=== PATIENT | male | born 1945 | race American Indian/Alaskan Native ===

== ENCOUNTER 2017-05-17 11:10 | Emergency (ER) | payer MEDICARE ==
--- NOTE | 2017-05-17 12:03 | Emergency Department Report ---
ED Neuro Deficit HPI - General Chief Complaint: Neuro Symptoms/Deficit Stated Complaint: HAND SWOLLEN Time Seen by Provider: 05/17/17 11:48 Source: patient, EMS Mode of arrival: Stretcher Limitations: No Limitations - History of Present Illness Initial Comments: Pt is a 71 yr old male with h/o DM, HTN, gout, seizure d/o, generalized weakness bed bound, HLD, CAD, depression, and dementia who presents from the [facility] s/p fall. Pt reports he fell 2 days ago onto his left side and is now having bouts of blurry vision, L hand swelling, and L arm pain extending to the shoulder. The patient is able to give a full history of what happened to him. However, the [facility] was concerned for CVA sx with the blurry vision, but the patient states that this all states s/p fall 2 days ago. Otherwise no fevers, chills, headache, dizziness, LOC, CP, SOB, abd pain, travel or sick contacts - Related Data Allergies/Adverse Reactions: Allergies Allergy/AdvReac Type Severity Reaction Status Date / Time No Known Allergies Allergy Unverified 05/17/17 11:27 ED Review of Systems ROS: Stated complaint: HAND SWOLLEN Other details as noted in HPI Comment: All other systems reviewed and negative ED Past Medical Hx - Past Medical History Previous Medical History?: Yes Hx Hypertension: Yes Hx Diabetes: Yes Additional medical history: gout - Social History Smoking Status: Former Smoker Substance Use Type: None ED Neuro Physical Exam - General Limitations: No Limitations General appearance: alert, in no apparent distress Suspected Stroke: No - Head Head exam: Present: atraumatic, normocephalic - Eye Eye exam: Present: normal appearance, PERRL, EOMI, other (clear, no cloudiness seen). Absent: scleral icterus, conjunctival injection, nystagmus, periorbital swelling, periorbital tenderness Pupils: Present: normal accommodation. Absent: irregular, unequal - ENT ENT exam: Present: normal exam, mucous membranes moist - Neck Neck exam: Present: normal inspection - Respiratory Respiratory exam: Present: normal lung sounds bilaterally. Absent: respiratory distress - Cardiovascular Cardiovascular Exam: Present: regular rate, normal rhythm. Absent: systolic murmur, diastolic murmur, rubs, gallop - GI/Abdominal GI/Abdominal exam: Present: soft, normal bowel sounds - Rectal Rectal exam: Present: deferred - Extremities Exam Extremities exam: Present: normal inspection. Absent: full ROM (pain in wrist and forearm with elevation of the left arm), tenderness, pedal edema, joint swelling - Back Exam Back exam: Present: normal inspection - Neurological Exam Neurological exam: Present: alert, oriented X3, CN II-XII intact, reflexes normal. Absent: motor sensory deficit - Psychiatric Psychiatric exam: Present: normal affect, normal mood - Skin Skin exam: Present: warm, dry, intact, normal color. Absent: rash ED Course Vital Signs 05/17/17 05/17/17 05/17/17 11:25 11:27 11:30 Pulse Rate 60 60 60 Respiratory 14 17 16 Rate Blood Pressure 147/79 144/82 O2 Sat by Pulse 94 92 Oximetry 05/17/17 05/17/17 05/17/17 11:37 12:00 12:30 Pulse Rate 71 71 Respiratory 17 19 15 Rate Blood Pressure 170/92 163/92 O2 Sat by Pulse 94 95 65 L Oximetry 05/17/17 05/17/17 05/17/17 13:00 13:30 14:00 Pulse Rate 71 60 60 Respiratory 18 12 14 Rate Blood Pressure 168/90 160/89 167/84 O2 Sat by Pulse Oximetry - Lab Data Result diagrams: 05/17/17 12:01 05/17/17 12:01 Lab Results 05/17/17 05/17/17 05/17/17 Range/Units 12:01 12:01 12:01 WBC 8.1 (4.5-11.0) K/mm3 RBC 4.88 (3.65-5.03) M/mm3 Hgb 13.5 (11.8-15.2) gm/dl Hct 42.5 (35.5-45.6) % MCV 87 (84-94) fl MCH 28 (28-32) pg MCHC 32 (32-34) % RDW 20.3 H (13.2-15.2) % Plt Count 145 (140-440) K/mm3 Lymph % (Auto) 30.3 (13.4-35.0) % Starke % (Auto) 8.7 H (0.0-7.3) % Eos % (Auto) 0.9 (0.0-4.3) % Baso % (Auto) 0.5 (0.0-1.8) % Lymph # 2.5 (1.2-5.4) K/mm3 Starke # 0.7 (0.0-0.8) K/mm3 Eos # 0.1 (0.0-0.4) K/mm3 Baso # 0.0 (0.0-0.1) K/mm3 Seg Neutrophils % 59.6 (40.0-70.0) % Seg Neutrophils # 4.9 (1.8-7.7) K/mm3 PT 14.1 (12.2-14.9) Sec. INR 1.04 (0.87-1.13) APTT 30.2 (24.2-36.6) Sec. Thrombin Time (15.1-19.6) Sec. Sodium 142 (137-145) mmol/L Potassium 4.5 (3.6-5.0) mmol/L Chloride 102.6 (98-107) mmol/L Carbon Dioxide 27 (22-30) mmol/L Anion Gap 17 mmol/L BUN 19 (9-20) mg/dL Creatinine 1.5 (0.8-1.5) mg/dL Estimated GFR 56 ml/min BUN/Creatinine Ratio 12.66 % Glucose 95 (75-100) mg/dL Calcium 9.7 (8.4-10.2) mg/dL Troponin T < 0.010 (0.00-0.029) ng/mL 05/17/17 Range/Units 12:01 WBC (4.5-11.0) K/mm3 RBC (3.65-5.03) M/mm3 Hgb (11.8-15.2) gm/dl Hct (35.5-45.6) % MCV (84-94) fl MCH (28-32) pg MCHC (32-34) % RDW (13.2-15.2) % Plt Count (140-440) K/mm3 Lymph % (Auto) (13.4-35.0) % Starke % (Auto) (0.0-7.3) % Eos % (Auto) (0.0-4.3) % Baso % (Auto) (0.0-1.8) % Lymph # (1.2-5.4) K/mm3 Starke # (0.0-0.8) K/mm3 Eos # (0.0-0.4) K/mm3 Baso # (0.0-0.1) K/mm3 Seg Neutrophils % (40.0-70.0) % Seg Neutrophils # (1.8-7.7) K/mm3 PT (12.2-14.9) Sec. INR (0.87-1.13) APTT (24.2-36.6) Sec. Thrombin Time 17.0 (15.1-19.6) Sec. Sodium (137-145) mmol/L Potassium (3.6-5.0) mmol/L Chloride (98-107) mmol/L Carbon Dioxide (22-30) mmol/L Anion Gap mmol/L BUN (9-20) mg/dL Creatinine (0.8-1.5) mg/dL Estimated GFR ml/min BUN/Creatinine Ratio % Glucose (75-100) mg/dL Calcium (8.4-10.2) mg/dL Troponin T (0.00-0.029) ng/mL - EKG Data -: EKG Interpreted by 05/17/17 13:14 EKG 1243 atrial paced rhythm at 60 bpm, left axis deviation, left anterior fascicular block, QTC 450 ms, diffuse T-wave inversions, no STEMI - Radiology Data Radiology results: report reviewed Ct head: no acute intracranial findings Shoulder xray: no acute fracture or dislocation Forearm:no acute fracture or dislocation Wrist: no acute fracture or dislocation Hand: no acute fracture or dislocation Critical care attestation.: If time is entered above; I have spent that time in minutes in the direct care of this critically ill patient, excluding procedure time. ED Disposition Clinical Impression: Fall, Arm contusion Disposition: DC-01 TO HOME OR SELFCARE Is pt being admited?: No Condition: Stable Instructions: Fall Prevention for Older Adults (ED), Contusion in Adults (ED) Additional Instructions: PATIENT NEEDS TO BE EVALUATED BY THE OPHTHOMOLOGIST FOR INTERMITTENT BLURRY VISION IF PATIENT CONTINUES TO HAVE ARM PAIN HE NEEDS TO BE EVALUATED BY THE ORTHOPEDIST Referrals: PRIMARY CARE, [Primary Care Provider] - 3-5 Days
--- NOTE | 2017-05-17 12:18 | Cat Scan Report ---
CT HEAD WITHOUT CONTRAST: HISTORY: Neurological deficits, stroke. No comparison. Advanced volume loss and chronic white matter changes are identified. 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 Large chronic infarct in the right cerebellar hemisphere measures 5 x 4 cm. There is no evidence for hemorrhage, mass or large area of acute ischemia noncontrast CT. Ventricular size is within normal limits. No extra-axial fluid collection. The mastoid air cells and visualized portions of the sinuses are normal. IMPRESSION: No acute intracranial process. Chronic findings as outlined above.
[2017-05-17 12:39] LABS: Anion Gap 17 mmol/L; BUN/Creatinine Ratio 12.66; Basophils % (Auto) 0.5 % (0.0-1.8); Blood Urea Nitrogen 19 mg/dL (9-20); Calcium 9.7 mg/dL (8.4-10.2); Carbon Dioxide 27 mmol/L (22-30); Chloride 102.6 mmol/L (98-107); Eosinophils % (Auto) 0.9 % (0.0-4.3); Glucose 95 mg/dL (75-100); Hematocrit 42.5 % (35.5-45.6); Hemoglobin 13.5 gm/dl (11.8-15.2); Mean Corpuscular HGB Conc 32 % (32-34); Mean Corpuscular Hemoglobin 28 pg (28-32); Mean Corpuscular Volume 87 fl (84-94); Platelet Count 145 K/mm3 (140-440); Potassium 4.5 mmol/L (3.6-5.0); Red Blood Count 4.88 M/mm3 (3.65-5.03); Sodium 142 mmol/L (137-145); White Blood Count 8.1 K/mm3 (4.5-11.0)
[2017-05-17 13:01] LABS: INR 1.04 (0.87-1.13)
[2017-05-17 13:02] LABS: Partial Thromboplastin Time 30.2 Sec. (24.2-36.6)
[2017-05-17 13:04] LABS: Red Cell Distribution Width 20.3 % (13.2-15.2)
--- NOTE | 2017-05-17 13:29 | XRay Report ---
LEFT HAND, 3 views: History: Pain and swelling. Very poor examination secondary to a contracted hand with poor separation of the fingers. There are diffuse degenerative changes but no obvious fracture or malalignment. IMPRESSION: Limited exam. No acute injury appreciated.
--- NOTE | 2017-05-17 13:30 | XRay Report ---
LEFT FOREARM: History: Pain and swelling. AP and lateral views of the forearm demonstrate normal mineralization and contours for this patient's age. No fracture or dislocation is identified. Severe degenerative changes at the left elbow. IMPRESSION: No acute injury is identified.
--- NOTE | 2017-05-17 13:31 | XRay Report ---
LEFT SHOULDER, 2 views: History: Pain. Routine views demonstrate normal bony and soft tissue structures with normal joint alignment of the shoulder. IMPRESSION: No acute injury is identified.
[2017-05-17 16:20] VITALS: BP 167/95
== END 2017-05-17 16:20 | disposition home or self-care (01) ==
LOC: ED 11:10
DX: S40.022A Contusion of left upper arm, initial encounter (principal); E11.9 Type 2 diabetes mellitus without complications; I10 Essential (primary) hypertension; F32.9 Major depressive disorder, single episode, unspecified; Z87.891 Personal history of nicotine dependence; W19.XXXA Unspecified fall, initial encounter; Y93.89 Activity, other specified; Y99.9 Unspecified external cause status; Y92.89 Other specified places as the place of occurrence of the external cause
CPT/HCPCS: 36415; 70450; 80048; 84484; 85025; 85610; 85670; 85730; 93005; 93010

== ENCOUNTER 2017-05-26 12:40 | Inpatient (IN) | payer MEDICARE ==
--- NOTE | 2017-05-26 13:35 | Cat Scan Report ---
CT scan of head without contrast: Compare to 05/17/17. History: AMS. Stroke protocol. Findings. There is chronic infarct noted in the right cerebellum without significant interval change. There is chronic infarct noted in the left posterior watershed region without interval change. No evidence of acute ischemia, hemorrhage or mass. No extra-axial fluid collection. Impression: No acute intracranial abnormality. Chronic ischemic changes as detailed above. Dr. Dye was informed of the findings at 1:28 PM on 05/26/17. 98N.
[2017-05-26 13:37] LABS: Urine Drugs of Abuse Note Disclamer
--- NOTE | 2017-05-26 13:42 | Emergency Department Report ---
HPI - General Chief Complaint: Altered Mental Status Time Seen by Provider: 05/26/17 13:02 - HPI HPI: This is a 71-year-old Afro-[place] male who presents to the emergency department via EMS from [facility] with complaint of altered [place] [facility] says started 1 hour prior to presentation. The patient has a past medical history of diabetes, gout, dementia, hyperlipidemia, coronary artery disease, chronic ulcerations. Patient is currently a poor historian as he is currently AAO [address] but not time. However the patient does say that he has been having recent falls and that he is having pain to his bottom and left leg, both of which she has chronic ulcerations. It does not appears that he was given any medication or treatment for his symptoms prior to presentation. The patient was recently here on 05/17/17 for a medical evaluation status post fall. ED Past Medical Hx - Past Medical History Previous Medical History?: Yes Hx Hypertension: Yes Hx Diabetes: Yes Additional medical history: gout - Surgical History Past Surgical History?: Yes - Social History Smoking Status: Never Smoker Substance Use Type: None - Medications Home Medications: Home Medications Medication Instructions Recorded Confirmed Last Taken Type Allopurinol [Zyloprim] 100 mg PO QDAY 05/26/17 05/26/17 Unknown History Carvedilol [Coreg] 12.5 mg PO BID 05/26/17 05/26/17 Unknown History Divalproex [Ijeoma YOUNG] 500 mg PO BID 05/26/17 05/26/17 Unknown History Docusate Sodium [Colace] 100 mg PO BID 05/26/17 05/26/17 Unknown History Donepezil [Aricept] 10 mg PO QHS 05/26/17 05/26/17 Unknown History Ferrous Sulfate [Feosol] 325 mg PO BID 05/26/17 05/26/17 Unknown History Gabapentin [Neurontin] 300 mg PO Q8HR 05/26/17 05/26/17 Unknown History Insulin Aspart [NovoLOG Flexpen] 3 units SQ TIDWM 05/26/17 05/26/17 Unknown History Ipratropium/Albuterol Sulfate 1 ampul IH Q6HR 05/26/17 05/26/17 Unknown History [Duoneb 0.5 mg-3 mg/3 ml Soln] cefTRIAXone [Rocephin] 1 gm IV Q24HR 05/26/17 05/26/17 Unknown History ED Review of Systems ROS: Stated complaint: AMS X 1 HR Other details as noted in HPI Comment: Unobtainable due to pts medical conditions Physical Exam - Physical Exam Vital Signs: Vital Signs 05/26/17 05/26/17 05/26/17 12:40 12:41 12:42 Pulse Rate 61 64 60 Respiratory 13 12 16 Rate Blood Pressure 142/76 O2 Sat by Pulse Oximetry 05/26/17 05/26/17 05/26/17 12:43 12:45 12:47 Pulse Rate 63 63 60 Respiratory 16 14 18 Rate Blood Pressure 142/76 150/83 150/83 O2 Sat by Pulse Oximetry 05/26/17 05/26/17 05/26/17 12:49 12:51 12:53 Pulse Rate 63 64 62 Respiratory 17 17 11 L Rate Blood Pressure 150/83 150/83 150/83 O2 Sat by Pulse 96 95 96 Oximetry 05/26/17 05/26/17 05/26/17 12:55 12:57 12:59 Pulse Rate 64 60 62 Respiratory 13 14 12 Rate Blood Pressure 150/83 150/83 150/83 O2 Sat by Pulse 95 96 94 Oximetry 05/26/17 05/26/17 05/26/17 13:00 13:02 13:15 Pulse Rate 61 Respiratory 15 18 Rate Blood Pressure 150/83 150/83 O2 Sat by Pulse 96 96 95 Oximetry 05/26/17 05/26/17 05/26/17 13:17 13:19 13:21 Pulse Rate 68 64 65 Respiratory 14 13 14 Rate Blood Pressure 150/83 150/83 150/83 O2 Sat by Pulse 92 94 95 Oximetry 05/26/17 13:23 Pulse Rate 61 Respiratory 14 Rate Blood Pressure 150/83 O2 Sat by Pulse 94 Oximetry Physical Exam: GENERAL: The patient is well-developed well-nourished. HEENT: Normocephalic. Atraumatic. Extraocular motions are intact. Patient has moist mucous membranes. Pupils equal reactive to light bilaterally. NECK: Supple. Trachea is midline. CHEST/LUNGS: Clear to auscultation. There is no respiratory distress noted. HEART/CARDIOVASCULAR: Regular. There is no tachycardia. There is no gallop rub or murmur. ABDOMEN: Abdomen is soft, nontender. Patient has normal bowel sounds. There is no abdominal distention. SKIN: Skin is warm and dry. The patient has a stage I sacral decubitus ulcer. There is a wound to the left foot that is more of a blister then an ulcer at this point. NEURO: The patient is awake, alert. AAO [address] but not time. The patient also thinks the current president is Woody Albrecht. The patient is cooperative. The patient has normal speech. No pronator drift. MUSCULOSKELETAL: There is no tenderness or deformity. There is no limitation range of motion. There is no evidence of acute injury. Cap refill less than 2 seconds. Radial pulses +2 over 4 bilaterally. ED Course Vital Signs 05/26/17 05/26/17 05/26/17 12:40 12:41 12:42 Pulse Rate 61 64 60 Respiratory 13 12 16 Rate Blood Pressure 142/76 O2 Sat by Pulse Oximetry 05/26/17 05/26/17 05/26/17 12:43 12:45 12:47 Pulse Rate 63 63 60 Respiratory 16 14 18 Rate Blood Pressure 142/76 150/83 150/83 O2 Sat by Pulse Oximetry 05/26/17 05/26/17 05/26/17 12:49 12:51 12:53 Pulse Rate 63 64 62 Respiratory 17 17 11 L Rate Blood Pressure 150/83 150/83 150/83 O2 Sat by Pulse 96 95 96 Oximetry 05/26/17 05/26/17 05/26/17 12:55 12:57 12:59 Pulse Rate 64 60 62 Respiratory 13 14 12 Rate Blood Pressure 150/83 150/83 150/83 O2 Sat by Pulse 95 96 94 Oximetry 05/26/17 05/26/17 05/26/17 13:00 13:02 13:15 Pulse Rate 61 Respiratory 15 18 Rate Blood Pressure 150/83 150/83 O2 Sat by Pulse 96 96 95 Oximetry 05/26/17 05/26/17 05/26/17 13:17 13:19 13:21 Pulse Rate 68 64 65 Respiratory 14 13 14 Rate Blood Pressure 150/83 150/83 150/83 O2 Sat by Pulse 92 94 95 Oximetry 05/26/17 13:23 Pulse Rate 61 Respiratory 14 Rate Blood Pressure 150/83 O2 Sat by Pulse 94 Oximetry - Consultations Consultation #1: I spoke with the telemedicine neurologist, Dr. Quintin Diana, who does not feel that this patient is a TPA candidate. We are unsure whether the patient was found one hour prior to presentation and that is when they noticed the altered mental status versus the ECF staff interacting with the patient and noticing the exact time of change. However also based on his general debility and multiple comorbidities, he is a high risk for TPA administration. The neurologist recommends admission, further workup to look for other etiologies, and either serial CT or an MRI. 05/26/17 13:52 ED Medical Decision Making - Lab Data Result diagrams: 05/26/17 14:00 05/26/17 13:34 - EKG Data -: EKG Interpreted by Me EKG shows normal: sinus rhythm, axis (left axis deviation), intervals (right bundle-branch block), QRS complexes (LVH), ST-T waves (T-wave inversions to the inferior and lateral leads) - EKG Data When compared to previous EKG there are: no significant change Interpretation: unchanged when compared t (05/17/17) - Radiology Data Radiology results: report reviewed interpreted by me: CT of the head without contrast does not show any bleed, shift, mass or any acute process. Chronic ischemic changes seen. - Medical Decision Making 71-year-old male presents to the emergency department ECF with the complaint of altered mental status. Since the report was that the change in mental status happen acutely 1 hour prior to presentation, a code stroke was called. CT of the head did not show any bleed, shift, mass or any acute process but does show ischemic chronic changes. Telemedicine neurology agreed that the patient does not appear to be a candidate at this time for TPA administration. The rest the patient's labs are mostly unremarkable and do not show any etiology of the patient's symptoms. EKG shows some T-wave inversions and nonspecific ST-T changes but there is no morphology consistent with an ST elevation AL and the EKG is unchanged from previous. However since the neurologist also was unable to rule out CVA, and since the patient was sent in for altered mental status, the patient will be admitted to the hospital for further evaluation and has been presented to the hospitalist, Dr. Claudio. - Differential Diagnosis CVA, TIA, Dementia, Sepsis Critical Care Time: No Critical care attestation.: If time is entered above; I have spent that time in minutes in the direct care of this critically ill patient, excluding procedure time. ED Disposition Clinical Impression: History of dementia Altered mental status Qualifiers: Altered mental status type: unspecified Qualified Code(s): R41.82 - Altered mental status, unspecified Hypertension Qualifiers: Hypertension type: essential hypertension Qualified Code(s): I10 - Essential ( primary) hypertension Disposition: OP ADMIT IP TO THIS HOSP Is pt being admited?: Yes Condition: Stable Instructions: Hypertension (ED) Referrals: PRIMARY CARE, [Primary Care Provider] - 3-5 Days Time of Disposition: 15:32
[2017-05-26 13:47] LABS: Bilirubin,Urine NEG (Negative); Blood,Urine NEG (Negative); Ketones,Urine NEG (Negative); Leukocyte Esterase,Urine NEG (Negative); Mucus,Urine FEW /HPF; Nitrite,Urine NEG (Negative); Protein,Urine <15 mg/dL mg/dL (Negative)
[2017-05-26 14:10] LABS: Albumin 3.5 g/dL (3.9-5); Albumin/Globulin Ratio 0.8 %; Alkaline Phosphatase 56 units/L (35-129); Anion Gap 15 mmol/L; BUN/Creatinine Ratio 14.61; Blood Urea Nitrogen 19 mg/dL (9-20); Calcium 9.4 mg/dL (8.4-10.2); Carbon Dioxide 26 mmol/L (22-30); Chloride 100.8 mmol/L (98-107); Glucose 110 mg/dL (75-100); Potassium 4.4 mmol/L (3.6-5.0); Sodium 137 mmol/L (137-145); Total Protein 7.9 g/dL (6.3-8.2)
[2017-05-26 14:18] LABS: Alanine Aminotransferase < 5 units/L (7-56)
--- NOTE | 2017-05-26 14:23 | Admit Criteria Form ---
Admission Criteria Documentation: MENTAL STATUS CHANGE Clinical Indications for Inpatient Care (Place 'X' for any and all applicable criteria): Ongoing inpatient care may be needed for 1 or more of the following(1)(2)(3)(5)( 6): [ X]I. Suspected serious etiology (eg, medical disorder, INDUSTRI[employer] INTER[employer] event) of altered mental status [ ]II. Danger to self or others not manageable at lower level of care [ ]III. Grave disability (eg, inability to perform self care necessary at lower level of care) [ ]IV. Agitation or inappropriate behavior interfering with care for primary condition (eg, attempting to discontinue lines or drains prematurely, unable to cooperate with respiratory care) [ ]V. Delirium [A] [D][E] as described by 1 or more of the following(26): [ ]a) Delirium due to alcohol or sedative [F] withdrawal [ ]b) Delirium of uncertain etiology that has not responded to appropriate empiric treatment [ ]c) Delirium that prevents performance of a life-sustaining function (eg, feeding or hydrating oneself) [ X]. General contraindications and/or Inappropriate clinical situations for Observational Care in patients with Mental Status Change, when ANY ONE of the following is required: [X ]a) Prediction of prolongation of LOS based on ANY ONE of the following may be considered as a contraindication for observational care 2, 3, 4, 5, 6, 7, 8, 9, 10, 11 [X ]i) Age > 65 yrs. [ ]ii) Patient arriving by ambulance [ ]iii) Patient with high acuity [ ]iv) Patient requiring vital sign monitoring [ ]v) Patient on IV medication [ ]b) Systolic blood pressures greater than or equal to 180mmHg 3, 12 [ ]c) Patient with altered mental status including delirium and other alteration of consciousness, (3) [ ]d) Patient whose discharge disposition will be to a intermediate home or rehabilitation home should not be managed in Emergency Department Observation Unit. CMS rule requires 3 days hospital stay before such placement.3,13 [ ]e) Patient with failure to thrive due to broad array of etiologies 3,16,17 [ ]f) Inability to ambulate 3,14 Extended stay beyond goal length of stay for the primary condition may be needed until ALL of the following are present(3)(5): [ ]a) Underlying medical etiology of mental status change is absent, or has been established and adequately treated [ ]b) Danger to self or others is absent or manageable at lower level of care. [ ]c) Behavior crisis management, including physical or chemical restraints, is not required or available at lower level of car [ ]d) Substance or alcohol withdrawal is absent or manageable at lower level of care. [ ]e) Behavioral symptoms (eg, agitation, somnolence, inappropriate behavior) are absent, or are manageable at lower level of care. The original [facility] b-datum content created by [facility] has been revised. The portions of the content which have been revised are identified through the use of italic text or in bold, and [facility] has neither reviewed nor approved the modified material. All other unmodified content is copyright [facility]. Please see references footnoted in the original [facility] edition 2016 Admission Criteria Met: Yes
[2017-05-26 14:30] LABS: Basophils % (Auto) 0.6 % (0.0-1.8); Hemoglobin 13.1 gm/dl (11.8-15.2); Mean Corpuscular HGB Conc 32 % (32-34); Mean Corpuscular Hemoglobin 27 pg (28-32); Mean Corpuscular Volume 86 fl (84-94); Platelet Count 148 K/mm3 (140-440); Red Blood Count 4.79 M/mm3 (3.65-5.03); Red Cell Distribution Width 19.3 % (13.2-15.2); White Blood Count 8.6 K/mm3 (4.5-11.0)
--- NOTE | 2017-05-26 15:27 | History and Physical Report ---
Medications and Allergies Allergies Allergy/AdvReac Type Severity Reaction Status Date / Time No Known Allergies Allergy Unverified 05/17/17 11:27 Home Medications Medication Instructions Recorded Confirmed Last Taken Type Allopurinol [Zyloprim] 100 mg PO QDAY 05/26/17 05/26/17 Unknown History Carvedilol [Coreg] 12.5 mg PO BID 05/26/17 05/26/[address] [DepaKOTE DR] 500 mg PO BID 05/26/17 05/26/17 Unknown History Docusate Sodium [Colace] 100 mg PO BID 05/26/17 05/26/17 Unknown History Donepezil [Aricept] 10 mg PO QHS 05/26/17 05/26/17 Unknown History Ferrous Sulfate [Feosol] 325 mg PO BID 05/26/17 05/26/17 Unknown History Gabapentin [Neurontin] 300 mg PO Q8HR 05/26/17 05/26/17 Unknown History Insulin Aspart [NovoLOG Flexpen] 3 units SQ TIDWM 05/26/17 05/26/17 Unknown History Ipratropium/Albuterol Sulfate 1 ampul IH Q6HR 05/26/17 05/26/17 Unknown History [Duoneb 0.5 mg-3 mg/3 ml Soln] cefTRIAXone [Rocephin] 1 gm IV Q24HR 05/26/17 05/26/17 Unknown History Exam - Constitutional Vitals: Temp Pulse Resp BP Pulse Ox 64 14 139/70 94 05/26/17 14:01 05/26/17 14:01 05/26/17 14:01 05/26/17 13:23 Results - Labs CBC & Chem 7: 05/26/17 14:00 05/26/17 13:34 Labs: Abnormal lab results 05/26/17 05/26/17 05/26/17 Range/Units 13:34 13:34 14:00 MCH 27 L (28-32) pg RDW 19.3 H (13.2-15.2) % Glucose 110 H (75-100) mg/dL Magnesium 2.40 H (1.7-2.3) mg/dL ALT < 5 L (7-56) units/L Ammonia (25-60) umol/L Albumin 3.5 L (3.9-5) g/dL Salicylates < 0.3 L (2.8-20.0) mg/dL 05/26/17 Range/Units 14:00 MCH (28-32) pg RDW (13.2-15.2) % Glucose (75-100) mg/dL Magnesium (1.7-2.3) mg/dL ALT (7-56) units/L Ammonia 22.0 L (25-60) umol/L Albumin (3.9-5) g/dL Salicylates (2.8-20.0) mg/dL
[2017-05-26] MEDS ORDERED: MILK OF MAGNESIA PO PRN (17:37)
[2017-05-26] MEDS ORDERED: DULCOLAX PR PRN (17:37)
[2017-05-26] MEDS ORDERED: DUONEB *Not for PRN Use IH (17:37)
[2017-05-26] MEDS ORDERED: ZOFRAN IV PRN (17:37)
[2017-05-26] MEDS ORDERED: PROVENTIL IH PRN (17:55)
[2017-05-26] MEDS ORDERED: SODIUM CHLORIDE FLUSH SYRINGE 10 ML IV PRN (19:40)
[2017-05-26] MEDS: NACL 0.45% 1000 ML 1,000 ML IV SCH (20:14)
[2017-05-26] MEDS: NEURONTIN PO SCH (21:45)
[2017-05-26] MEDS: ARICEPT PO SCH (21:45)
[2017-05-26] MEDS: FEOSOL PO SCH (21:45)
[2017-05-26] MEDS: COLACE PO SCH (21:45)
[2017-05-26] MEDS: COREG PO SCH (21:45)
[2017-05-26] MEDS: TYLENOL PO PRN (21:46)
[2017-05-26 22:42] LABS: Anion Gap 19 mmol/L; BUN/Creatinine Ratio 13.57; Blood Urea Nitrogen 19 mg/dL (9-20); Calcium 9.4 mg/dL (8.4-10.2); Carbon Dioxide 25 mmol/L (22-30); Chloride 99.5 mmol/L (98-107); Glucose 102 mg/dL (75-100); Potassium 4.7 mmol/L (3.6-5.0); Sodium 139 mmol/L (137-145)
[2017-05-26 23:12] LABS: Basophils % (Auto) 0.5 % (0.0-1.8); Eosinophils % (Auto) 1.7 % (0.0-4.3); Hematocrit 40.9 % (35.5-45.6); Mean Corpuscular HGB Conc 32 % (32-34); Mean Corpuscular Hemoglobin 27 pg (28-32); Mean Corpuscular Volume 85 fl (84-94); Platelet Count 141 K/mm3 (140-440); White Blood Count 8.4 K/mm3 (4.5-11.0)
[2017-05-27] MEDS: LASIX PO SCH ×2 (05:18→18:50)
[2017-05-27] MEDS: NEURONTIN PO SCH ×3 (05:18→21:20)
--- NOTE | 2017-05-27 08:07 | Progress Note ---
Assessment and Plan Assessment and plan: --Metabolic encephalopathy Multifactorial, neurochecks, supportive care --Diabetes mellitus; Accu-Chek sliding scale coverage ADA diet, insulin as needed --dementia; resume Aricept supportive care --Elevated D dimers; CT angiogram of the chest to rule out PE --Coronary artery disease; resume appropriate home medications --History of gout; continue allopurinol, pain management --Decubitus ulcer; wound care --DVT prophylaxis; add Lovenox --Full code Status --DC planning. per Case management Closely monitor the patient and adjust management as needed History Interval history: Patient seen and evaluated medical records reviewed No new events reported by nursing staff Patient feels better no new complaints Hospitalist Physical - Constitutional Vitals: Temp Pulse Resp BP Pulse Ox 97.2 F L 59 L 16 171/89 98 05/27/17 02:34 05/27/17 02:34 05/27/17 02:34 05/27/17 02:34 05/26/17 23:37 General appearance: Present: no acute distress, well-nourished - EENT Eyes: Present: PERRL, EOM intact - Neck Neck: Present: supple, normal ROM - Respiratory Respiratory effort: normal Respiratory: bilateral: diminished, negative: rales, rhonchi, wheezing - Cardiovascular Rhythm: regular Heart Sounds: Present: S1 & S2 - Extremities Extremities: no ischemia, pulses intact, pulses symmetrical - Abdominal General gastrointestinal: soft, non-tender, non-distended, normal bowel sounds - Integumentary Integumentary: Present: clear, warm - Psychiatric Psychiatric: appropriate mood/affect, other (confused at times) - Neurologic Neurologic: moves all extremities Results - Labs CBC & Chem 7: 05/26/17 22:33 05/26/17 13:34 Labs: Laboratory Last Values WBC 8.4 K/mm3 (4.5-11.0) 05/26/17 22:33 RBC 4.80 M/mm3 (3.65-5.03) 05/26/17 22:33 Hgb 13.0 gm/dl (11.8-15.2) 05/26/17 22:33 Hct 40.9 % (35.5-45.6) 05/26/17 22:33 MCV 85 fl (84-94) 05/26/17 22:33 MCH 27 pg (28-32) L 05/26/17 22:33 MCHC 32 % (32-34) 05/26/17 22:33 RDW 19.0 % (13.2-15.2) H 05/26/17 22:33 Plt Count 141 K/mm3 (140-440) 05/26/17 22:33 Lymph % (Auto) 37.2 % (13.4-35.0) H 05/26/17 22:33 [place] % (Auto) 8.4 % (0.0-7.3) H 05/26/17 22:33 Eos % (Auto) 1.7 % (0.0-4.3) 05/26/17 22:33 Baso % (Auto) 0.5 % (0.0-1.8) 05/26/17 22:33 Lymph # 3.1 K/mm3 (1.2-5.4) 05/26/17 22:33 [place] # 0.7 K/mm3 (0.0-0.8) 05/26/17 22:33 Eos # 0.1 K/mm3 (0.0-0.4) 05/26/17 22:33 Baso # 0.0 K/mm3 (0.0-0.1) 05/26/17 22:33 Seg Neutrophils % 52.2 % (40.0-70.0) 05/26/17 22:33 Seg Neutrophils # 4.4 K/mm3 (1.8-7.7) 05/26/17 22:33 D-Dimer 1815.03 ng/mlDDU (0-234) H 05/26/17 17:49 Sodium 137 mmol/L (137-145) 05/26/17 13:34 Potassium 4.4 mmol/L (3.6-5.0) 05/26/17 13:34 Chloride 100.8 mmol/L (98-107) 05/26/17 13:34 Carbon Dioxide 26 mmol/L (22-30) 05/26/17 13:34 Anion Gap 15 mmol/L 05/26/17 13:34 BUN 19 mg/dL (9-20) 05/26/17 13:34 Creatinine 1.3 mg/dL (0.8-1.5) 05/26/17 13:34 Estimated GFR > 60 ml/min 05/26/17 13:34 BUN/Creatinine Ratio 14.61 % 05/26/17 13:34 Glucose 110 mg/dL (75-100) H 05/26/17 13:34 Lactic Acid 1.00 mmol/L (0.7-2.0) 05/26/17 16:21 Calcium 9.4 mg/dL (8.4-10.2) 05/26/17 13:34 Magnesium 2.40 mg/dL (1.7-2.3) H 05/26/17 13:34 Total Bilirubin 0.30 mg/dL (0.1-1.2) 05/26/17 13:34 AST 12 units/L (5-40) 05/26/17 13:34 ALT < 5 units/L (7-56) L 05/26/17 13:34 Alkaline Phosphatase 56 units/L (35-129) 05/26/17 13:34 Ammonia 22.0 umol/L (25-60) L 05/26/17 14:00 Troponin T < 0.010 ng/mL (0.00-0.029) 05/27/17 01:55 NT-Pro-B Natriuret Pep 1276 pg/mL (0-900) H 05/26/17 17:49 Total Protein 7.9 g/dL (6.3-8.2) 05/26/17 13:34 Albumin 3.5 g/dL (3.9-5) L 05/26/17 13:34 Albumin/Globulin Ratio 0.8 % 05/26/17 13:34 TSH 1.010 mlU/mL (0.270-4.200) 05/26/17 13:34 Urine Color Yellow (Yellow) 05/26/17 13:29 Urine Turbidity Clear (Clear) 05/26/17 13:29 Urine pH 5.0 (5.0-7.0) 05/26/17 13:29 Ur Specific [place] 1.017 (1.003-1.030) 05/26/17 13:29 Urine Protein <15 mg/dl mg/dL (Negative) 05/26/17 13:29 Urine Glucose (UA) Neg mg/dL (Negative) 05/26/17 13:29 Urine Ketones Neg mg/dL (Negative) 05/26/17 13:29 Urine Blood Neg (Negative) 05/26/17 13:29 Urine Nitrite Neg (Negative) 05/26/17 13:29 Urine Bilirubin Neg (Negative) 05/26/17 13:29 Urine Urobilinogen 2.0 mg/dL (<2.0) 05/26/17 13:29 Ur Leukocyte Esterase Neg (Negative) 05/26/17 13:29 Urine WBC (Auto) 1.0 /HPF (0.0-6.0) 05/26/17 13:29 Urine RBC (Auto) 3.0 /HPF (0.0-6.0) 05/26/17 13:29 Urine Mucus Few /HPF 05/26/17 13:29 Salicylates < 0.3 mg/dL (2.8-20.0) L 05/26/17 13:34 Urine Opiates Screen Presumptive negative 05/26/17 13:29 Urine Methadone Screen Presumptive negative 05/26/17 13:29 Acetaminophen < 15.0 ug/mL (10.0-30.0) 05/26/17 13:34 Ur Barbiturates Screen Presumptive positive 05/26/17 13:29 Ur Phencyclidine Scrn Presumptive negative 05/26/17 13:29 Ur Amphetamines Screen Presumptive negative 05/26/17 13:29 U Benzodiazepines Scrn Presumptive negative 05/26/17 13:29 Urine Cocaine Screen Presumptive negative 05/26/17 13:29 U Marijuana (THC) Screen Presumptive negative 05/26/17 13:29 Drugs of Abuse Note Disclamer 05/26/17 13:29 Plasma/Serum Alcohol < 0.01 gm% (0-0.07) 05/26/17 13:34
[2017-05-27] MEDS: NACL 0.45% 1000 ML 1,000 ML IV SCH ×2 (10:11→21:23)
[2017-05-27] MEDS: COREG PO SCH ×2 (10:42→21:21)
[2017-05-27] MEDS: FEOSOL PO SCH ×2 (10:42→21:20)
[2017-05-27] MEDS: ZESTRIL PO SCH (10:42)
[2017-05-27] MEDS: ZYLOPRIM PO SCH (10:42)
[2017-05-27] MEDS: COLACE PO SCH ×2 (10:42→21:20)
[2017-05-27] MEDS: LOVENOX SUB-Q SCH (21:19)
[2017-05-27] MEDS: ARICEPT PO SCH (21:20)
[2017-05-27] MEDS: TYLENOL PO PRN (21:21)
[2017-05-28] MEDS: NEURONTIN PO SCH ×3 (05:35→22:34)
[2017-05-28] MEDS: TYLENOL PO PRN (05:35)
[2017-05-28] MEDS: LASIX PO SCH ×2 (05:35→17:11)
--- NOTE | 2017-05-28 08:29 | Progress Note ---
Assessment and Plan Assessment and plan: --Elevated D dimers; DC CT angiogram of the chest unable to obtain consent Will check VQ scan to rule out PE --Metabolic encephalopathy, and time significantly improved, probably baseline, supportive care --Diabetes mellitus; Accu-Chek sliding scale coverage ADA diet, insulin as needed --dementia; resume Aricept supportive care --Coronary artery disease; stable on medications --History of gout; continue allopurinol, pain management --Decubitus ulcer; wound care --DVT prophylaxis; continue Lovenox --Full code Status --DC planning. per Case management Closely monitor the patient and adjust management as needed Plan of care discussed with the patient's nurse and case management History Interval history: Patient seen and evaluated medical records reviewed Patient feels better, confused at times, responds to simple questions appropriately No new events reported by nursing staff, denies chest pain or shortness of breath Hospitalist Physical - Constitutional Vitals: Temp Pulse Resp BP Pulse Ox 98.1 F 60 20 158/76 98 05/27/17 19:43 05/27/17 22:00 05/27/17 22:00 05/27/17 21:21 05/27/17 22:00 General appearance: Present: no acute distress, well-nourished - EENT Eyes: Present: PERRL, EOM intact - Neck Neck: Present: supple, normal ROM - Respiratory Respiratory effort: normal Respiratory: negative: rales, rhonchi, wheezing - Cardiovascular Rhythm: regular Heart Sounds: Present: S1 & S2 - Extremities Extremities: no ischemia, pulses intact - Abdominal General gastrointestinal: soft, non-tender, non-distended, normal bowel sounds - Integumentary Integumentary: Present: clear, warm - Psychiatric Psychiatric: appropriate mood/affect, cooperative - Neurologic Neurologic: CNII-XII intact, moves all extremities Results - Labs CBC & Chem 7: 05/26/17 22:33 05/26/17 13:34 Labs: Laboratory Last Values WBC 8.4 K/mm3 (4.5-11.0) 05/26/17 22:33 RBC 4.80 M/mm3 (3.65-5.03) 05/26/17 22:33 Hgb 13.0 gm/dl (11.8-15.2) 05/26/17 22:33 Hct 40.9 % (35.5-45.6) 05/26/17 22:33 MCV 85 fl (84-94) 05/26/17 22:33 MCH 27 pg (28-32) L 05/26/17 22:33 MCHC 32 % (32-34) 05/26/17 22:33 RDW 19.0 % (13.2-15.2) H 05/26/17 22:33 Plt Count 141 K/mm3 (140-440) 05/26/17 22:33 Lymph % (Auto) 37.2 % (13.4-35.0) H 05/26/17 22:33 [place] % (Auto) 8.4 % (0.0-7.3) H 05/26/17 22:33 Eos % (Auto) 1.7 % (0.0-4.3) 05/26/17 22:33 Baso % (Auto) 0.5 % (0.0-1.8) 05/26/17 22:33 Lymph # 3.1 K/mm3 (1.2-5.4) 05/26/17 22:33 [place] # 0.7 K/mm3 (0.0-0.8) 05/26/17 22:33 Eos # 0.1 K/mm3 (0.0-0.4) 05/26/17 22:33 Baso # 0.0 K/mm3 (0.0-0.1) 05/26/17 22:33 Seg Neutrophils % 52.2 % (40.0-70.0) 05/26/17 22:33 Seg Neutrophils # 4.4 K/mm3 (1.8-7.7) 05/26/17 22:33 D-Dimer 1815.03 ng/mlDDU (0-234) H 05/26/17 17:49 Sodium 137 mmol/L (137-145) 05/26/17 13:34 Potassium 4.4 mmol/L (3.6-5.0) 05/26/17 13:34 Chloride 100.8 mmol/L (98-107) 05/26/17 13:34 Carbon Dioxide 26 mmol/L (22-30) 05/26/17 13:34 Anion Gap 15 mmol/L 05/26/17 13:34 BUN 19 mg/dL (9-20) 05/26/17 13:34 Creatinine 1.3 mg/dL (0.8-1.5) 05/26/17 13:34 Estimated GFR > 60 ml/min 05/26/17 13:34 BUN/Creatinine Ratio 14.61 % 05/26/17 13:34 Glucose 110 mg/dL (75-100) H 05/26/17 13:34 Lactic Acid 1.00 mmol/L (0.7-2.0) 05/26/17 16:21 Calcium 9.4 mg/dL (8.4-10.2) 05/26/17 13:34 Magnesium 2.40 mg/dL (1.7-2.3) H 05/26/17 13:34 Total Bilirubin 0.30 mg/dL (0.1-1.2) 05/26/17 13:34 AST 12 units/L (5-40) 05/26/17 13:34 ALT < 5 units/L (7-56) L 05/26/17 13:34 Alkaline Phosphatase 56 units/L (35-129) 05/26/17 13:34 Ammonia 22.0 umol/L (25-60) L 05/26/17 14:00 Troponin T < 0.010 ng/mL (0.00-0.029) 05/27/17 01:55 NT-Pro-B Natriuret Pep 1276 pg/mL (0-900) H 05/26/17 17:49 Total Protein 7.9 g/dL (6.3-8.2) 05/26/17 13:34 Albumin 3.5 g/dL (3.9-5) L 05/26/17 13:34 Albumin/Globulin Ratio 0.8 % 05/26/17 13:34 TSH 1.010 mlU/mL (0.270-4.200) 05/26/17 13:34 Urine Color Yellow (Yellow) 05/26/17 13:29 Urine Turbidity Clear (Clear) 05/26/17 13:29 Urine pH 5.0 (5.0-7.0) 05/26/17 13:29 Ur Specific [place] 1.017 (1.003-1.030) 05/26/17 13:29 Urine Protein <15 mg/dl mg/dL (Negative) 05/26/17 13:29 Urine Glucose (UA) Neg mg/dL (Negative) 05/26/17 13:29 Urine Ketones Neg mg/dL (Negative) 05/26/17 13:29 Urine Blood Neg (Negative) 05/26/17 13:29 Urine Nitrite Neg (Negative) 05/26/17 13:29 Urine Bilirubin Neg (Negative) 05/26/17 13:29 Urine Urobilinogen 2.0 mg/dL (<2.0) 05/26/17 13:29 Ur Leukocyte Esterase Neg (Negative) 05/26/17 13:29 Urine WBC (Auto) 1.0 /HPF (0.0-6.0) 05/26/17 13:29 Urine RBC (Auto) 3.0 /HPF (0.0-6.0) 05/26/17 13:29 Urine Mucus Few /HPF 05/26/17 13:29 Salicylates < 0.3 mg/dL (2.8-20.0) L 05/26/17 13:34 Urine Opiates Screen Presumptive negative 05/26/17 13:29 Urine Methadone Screen Presumptive negative 05/26/17 13:29 Acetaminophen < 15.0 ug/mL (10.0-30.0) 05/26/17 13:34 Ur Barbiturates Screen Presumptive positive 05/26/17 13:29 Ur Phencyclidine Scrn Presumptive negative 05/26/17 13:29 Ur Amphetamines Screen Presumptive negative 05/26/17 13:29 U Benzodiazepines Scrn Presumptive negative 05/26/17 13:29 Urine Cocaine Screen Presumptive negative 05/26/17 13:29 U Marijuana (THC) Screen Presumptive negative 05/26/17 13:29 Drugs of Abuse Note Disclamer 05/26/17 13:29 Plasma/Serum Alcohol < 0.01 gm% (0-0.07) 05/26/17 13:34
[2017-05-28] MEDS: ZYLOPRIM PO SCH (09:16)
[2017-05-28] MEDS: FEOSOL PO SCH ×2 (09:16→22:33)
[2017-05-28] MEDS: ZESTRIL PO SCH (09:17)
[2017-05-28] MEDS: COLACE PO SCH ×2 (09:17→22:34)
[2017-05-28] MEDS: COREG PO SCH ×2 (09:18→22:33)
[2017-05-28] MEDS: NACL 0.45% 1000 ML 1,000 ML IV SCH (17:08)
[2017-05-28] MEDS: LOVENOX SUB-Q SCH (22:33)
[2017-05-28] MEDS: ARICEPT PO SCH (22:34)
[2017-05-29] MEDS: TYLENOL PO PRN (00:01)
[2017-05-29] MEDS: LASIX PO SCH (06:21)
[2017-05-29] MEDS: NEURONTIN PO SCH ×3 (06:21→22:19)
--- NOTE | 2017-05-29 07:39 | Progress Note ---
Hospitalist Physical - Constitutional Vitals: Temp Pulse Resp BP Pulse Ox 98.0 F 63 18 172/65 100 05/28/17 19:00 05/29/17 02:05 05/29/17 01:01 05/28/17 22:33 05/28/17 22:00 General appearance: Present: no acute distress, well-nourished Results - Labs CBC & Chem 7: 05/26/17 22:33 05/26/17 13:34 Labs: Laboratory Last Values WBC 8.4 K/mm3 (4.5-11.0) 05/26/17 22:33 RBC 4.80 M/mm3 (3.65-5.03) 05/26/17 22:33 Hgb 13.0 gm/dl (11.8-15.2) 05/26/17 22:33 Hct 40.9 % (35.5-45.6) 05/26/17 22:33 MCV 85 fl (84-94) 05/26/17 22:33 MCH 27 pg (28-32) L 05/26/17 22:33 MCHC 32 % (32-34) 05/26/17 22:33 RDW 19.0 % (13.2-15.2) H 05/26/17 22:33 Plt Count 141 K/mm3 (140-440) 05/26/17 22:33 Lymph % (Auto) 37.2 % (13.4-35.0) H 05/26/17 22:33 [place] % (Auto) 8.4 % (0.0-7.3) H 05/26/17 22:33 Eos % (Auto) 1.7 % (0.0-4.3) 05/26/17 22:33 Baso % (Auto) 0.5 % (0.0-1.8) 05/26/17 22:33 Lymph # 3.1 K/mm3 (1.2-5.4) 05/26/17 22:33 [place] # 0.7 K/mm3 (0.0-0.8) 05/26/17 22:33 Eos # 0.1 K/mm3 (0.0-0.4) 05/26/17 22:33 Baso # 0.0 K/mm3 (0.0-0.1) 05/26/17 22:33 Seg Neutrophils % 52.2 % (40.0-70.0) 05/26/17 22:33 Seg Neutrophils # 4.4 K/mm3 (1.8-7.7) 05/26/17 22:33 D-Dimer 1815.03 ng/mlDDU (0-234) H 05/26/17 17:49 Sodium 137 mmol/L (137-145) 05/26/17 13:34 Potassium 4.4 mmol/L (3.6-5.0) 05/26/17 13:34 Chloride 100.8 mmol/L (98-107) 05/26/17 13:34 Carbon Dioxide 26 mmol/L (22-30) 05/26/17 13:34 Anion Gap 15 mmol/L 05/26/17 13:34 BUN 19 mg/dL (9-20) 05/26/17 13:34 Creatinine 1.3 mg/dL (0.8-1.5) 05/26/17 13:34 Estimated GFR > 60 ml/min 05/26/17 13:34 BUN/Creatinine Ratio 14.61 % 05/26/17 13:34 Glucose 110 mg/dL (75-100) H 05/26/17 13:34 Lactic Acid 1.00 mmol/L (0.7-2.0) 05/26/17 16:21 Calcium 9.4 mg/dL (8.4-10.2) 05/26/17 13:34 Magnesium 2.40 mg/dL (1.7-2.3) H 05/26/17 13:34 Total Bilirubin 0.30 mg/dL (0.1-1.2) 05/26/17 13:34 AST 12 units/L (5-40) 05/26/17 13:34 ALT < 5 units/L (7-56) L 05/26/17 13:34 Alkaline Phosphatase 56 units/L (35-129) 05/26/17 13:34 Ammonia 22.0 umol/L (25-60) L 05/26/17 14:00 Troponin T < 0.010 ng/mL (0.00-0.029) 05/27/17 01:55 NT-Pro-B Natriuret Pep 1276 pg/mL (0-900) H 05/26/17 17:49 Total Protein 7.9 g/dL (6.3-8.2) 05/26/17 13:34 Albumin 3.5 g/dL (3.9-5) L 05/26/17 13:34 Albumin/Globulin Ratio 0.8 % 05/26/17 13:34 TSH 1.010 mlU/mL (0.270-4.200) 05/26/17 13:34 Urine Color Yellow (Yellow) 05/26/17 13:29 Urine Turbidity Clear (Clear) 05/26/17 13:29 Urine pH 5.0 (5.0-7.0) 05/26/17 13:29 Ur Specific [place] 1.017 (1.003-1.030) 05/26/17 13:29 Urine Protein <15 mg/dl mg/dL (Negative) 05/26/17 13:29 Urine Glucose (UA) Neg mg/dL (Negative) 05/26/17 13:29 Urine Ketones Neg mg/dL (Negative) 05/26/17 13:29 Urine Blood Neg (Negative) 05/26/17 13:29 Urine Nitrite Neg (Negative) 05/26/17 13:29 Urine Bilirubin Neg (Negative) 05/26/17 13:29 Urine Urobilinogen 2.0 mg/dL (<2.0) 05/26/17 13:29 Ur Leukocyte Esterase Neg (Negative) 05/26/17 13:29 Urine WBC (Auto) 1.0 /HPF (0.0-6.0) 05/26/17 13:29 Urine RBC (Auto) 3.0 /HPF (0.0-6.0) 05/26/17 13:29 Urine Mucus Few /HPF 05/26/17 13:29 Salicylates < 0.3 mg/dL (2.8-20.0) L 05/26/17 13:34 Urine Opiates Screen Presumptive negative 05/26/17 13:29 Urine Methadone Screen Presumptive negative 05/26/17 13:29 Acetaminophen < 15.0 ug/mL (10.0-30.0) 05/26/17 13:34 Ur Barbiturates Screen Presumptive positive 05/26/17 13:29 Ur Phencyclidine Scrn Presumptive negative 05/26/17 13:29 Ur Amphetamines Screen Presumptive negative 05/26/17 13:29 U Benzodiazepines Scrn Presumptive negative 05/26/17 13:29 Urine Cocaine Screen Presumptive negative 05/26/17 13:29 U Marijuana (THC) Screen Presumptive negative 05/26/17 13:29 Drugs of Abuse Note Disclamer 05/26/17 13:29 Plasma/Serum Alcohol < 0.01 gm% (0-0.07) 05/26/17 13:34
--- NOTE | 2017-05-29 08:30 | Progress Note ---
Assessment and Plan Assessment and plan: --Acute on chronic systolic congestive heart failure ejection fraction of 35-40% Continue diuretics, beta blockers, dawn inhibitors, input output monitoring --Elevated D dimers; DC CT angiogram of the chest unable to obtain consent Will check VQ scan to evaluate for PE --Metabolic encephalopathy, and time significantly improved, probably baseline, supportive care --Diabetes mellitus; Accu-Chek sliding scale coverage ADA diet, insulin as needed --dementia; resume Aricept supportive care --Coronary artery disease; stable on medications --History of gout; continue allopurinol, pain management --Decubitus ulcer; wound care --DVT prophylaxis; continue Lovenox --Full code Status --DC planning. per Case management Closely monitor the patient and adjust management as needed Plan of care discussed with the patient's nurse and case management History Interval history: Patient seen and evaluated medical records reviewed No new events reported by the nursing staff Patient is scheduled for VQ scan for evaluation of PE Feels better no new complaints Hospitalist Physical - Constitutional Vitals: Temp Pulse Resp BP Pulse Ox 98.0 F 63 18 172/65 100 05/28/17 19:00 05/29/17 02:05 05/29/17 01:01 05/28/17 22:33 05/28/17 22:00 General appearance: Present: no acute distress, well-nourished - EENT Eyes: Present: PERRL, EOM intact - Neck Neck: Present: supple, normal ROM - Respiratory Respiratory effort: normal Respiratory: bilateral: diminished, negative: rales, rhonchi, wheezing - Cardiovascular Rhythm: regular Heart Sounds: Present: S1 & S2 - Extremities Extremities: no ischemia, pulses intact, pulses symmetrical - Abdominal General gastrointestinal: soft, non-distended, normal bowel sounds - Integumentary Integumentary: Present: clear, warm - Psychiatric Psychiatric: appropriate mood/affect, cooperative - Neurologic Neurologic: CNII-XII intact, moves all extremities Results - Labs CBC & Chem 7: 05/26/17 22:33 05/26/17 13:34 Labs: Laboratory Last Values WBC 8.4 K/mm3 (4.5-11.0) 05/26/17 22:33 RBC 4.80 M/mm3 (3.65-5.03) 05/26/17 22:33 Hgb 13.0 gm/dl (11.8-15.2) 05/26/17 22:33 Hct 40.9 % (35.5-45.6) 05/26/17 22:33 MCV 85 fl (84-94) 05/26/17 22:33 MCH 27 pg (28-32) L 05/26/17 22:33 MCHC 32 % (32-34) 05/26/17 22:33 RDW 19.0 % (13.2-15.2) H 05/26/17 22:33 Plt Count 141 K/mm3 (140-440) 05/26/17 22:33 Lymph % (Auto) 37.2 % (13.4-35.0) H 05/26/17 22:33 [place] % (Auto) 8.4 % (0.0-7.3) H 05/26/17 22:33 Eos % (Auto) 1.7 % (0.0-4.3) 05/26/17 22:33 Baso % (Auto) 0.5 % (0.0-1.8) 05/26/17 22:33 Lymph # 3.1 K/mm3 (1.2-5.4) 05/26/17 22:33 [place] # 0.7 K/mm3 (0.0-0.8) 05/26/17 22:33 Eos # 0.1 K/mm3 (0.0-0.4) 05/26/17 22:33 Baso # 0.0 K/mm3 (0.0-0.1) 05/26/17 22:33 Seg Neutrophils % 52.2 % (40.0-70.0) 05/26/17 22:33 Seg Neutrophils # 4.4 K/mm3 (1.8-7.7) 05/26/17 22:33 D-Dimer 1815.03 ng/mlDDU (0-234) H 05/26/17 17:49 Sodium 137 mmol/L (137-145) 05/26/17 13:34 Potassium 4.4 mmol/L (3.6-5.0) 05/26/17 13:34 Chloride 100.8 mmol/L (98-107) 05/26/17 13:34 Carbon Dioxide 26 mmol/L (22-30) 05/26/17 13:34 Anion Gap 15 mmol/L 05/26/17 13:34 BUN 19 mg/dL (9-20) 05/26/17 13:34 Creatinine 1.3 mg/dL (0.8-1.5) 05/26/17 13:34 Estimated GFR > 60 ml/min 05/26/17 13:34 BUN/Creatinine Ratio 14.61 % 05/26/17 13:34 Glucose 110 mg/dL (75-100) H 05/26/17 13:34 Lactic Acid 1.00 mmol/L (0.7-2.0) 05/26/17 16:21 Calcium 9.4 mg/dL (8.4-10.2) 05/26/17 13:34 Magnesium 2.40 mg/dL (1.7-2.3) H 05/26/17 13:34 Total Bilirubin 0.30 mg/dL (0.1-1.2) 05/26/17 13:34 AST 12 units/L (5-40) 05/26/17 13:34 ALT < 5 units/L (7-56) L 05/26/17 13:34 Alkaline Phosphatase 56 units/L (35-129) 05/26/17 13:34 Ammonia 22.0 umol/L (25-60) L 05/26/17 14:00 Troponin T < 0.010 ng/mL (0.00-0.029) 05/27/17 01:55 NT-Pro-B Natriuret Pep 1276 pg/mL (0-900) H 05/26/17 17:49 Total Protein 7.9 g/dL (6.3-8.2) 05/26/17 13:34 Albumin 3.5 g/dL (3.9-5) L 05/26/17 13:34 Albumin/Globulin Ratio 0.8 % 05/26/17 13:34 TSH 1.010 mlU/mL (0.270-4.200) 05/26/17 13:34 Urine Color Yellow (Yellow) 05/26/17 13:29 Urine Turbidity Clear (Clear) 05/26/17 13:29 Urine pH 5.0 (5.0-7.0) 05/26/17 13:29 Ur Specific [place] 1.017 (1.003-1.030) 05/26/17 13:29 Urine Protein <15 mg/dl mg/dL (Negative) 05/26/17 13:29 Urine Glucose (UA) Neg mg/dL (Negative) 05/26/17 13:29 Urine Ketones Neg mg/dL (Negative) 05/26/17 13:29 Urine Blood Neg (Negative) 05/26/17 13:29 Urine Nitrite Neg (Negative) 05/26/17 13:29 Urine Bilirubin Neg (Negative) 05/26/17 13:29 Urine Urobilinogen 2.0 mg/dL (<2.0) 05/26/17 13:29 Ur Leukocyte Esterase Neg (Negative) 05/26/17 13:29 Urine WBC (Auto) 1.0 /HPF (0.0-6.0) 05/26/17 13:29 Urine RBC (Auto) 3.0 /HPF (0.0-6.0) 05/26/17 13:29 Urine Mucus Few /HPF 05/26/17 13:29 Salicylates < 0.3 mg/dL (2.8-20.0) L 05/26/17 13:34 Urine Opiates Screen Presumptive negative 05/26/17 13:29 Urine Methadone Screen Presumptive negative 05/26/17 13:29 Acetaminophen < 15.0 ug/mL (10.0-30.0) 05/26/17 13:34 Ur Barbiturates Screen Presumptive positive 05/26/17 13:29 Ur Phencyclidine Scrn Presumptive negative 05/26/17 13:29 Ur Amphetamines Screen Presumptive negative 05/26/17 13:29 U Benzodiazepines Scrn Presumptive negative 05/26/17 13:29 Urine Cocaine Screen Presumptive negative 05/26/17 13:29 U Marijuana (THC) Screen Presumptive negative 05/26/17 13:29 Drugs of Abuse Note Disclamer 05/26/17 13:29 Plasma/Serum Alcohol < 0.01 gm% (0-0.07) 05/26/17 13:34
--- NOTE | 2017-05-29 09:51 | Nuclear Medicine Report ---
VENTILATION/PERFUSION LUNG SCAN: 05/29/17 CLINICAL: Shortness of breath TECHNIQUE: 15.0 millicuries of xenon-133 was administered by aerosol and 5.0mCi of technetium 99m MAA was administered intravenously. Comparison is made to a same daychest x-ray. FINDINGS: Inhalation of Xenon gas demonstrates a normal distribution of the activity throughout both lungs. The wash out phases show moderate bilateral retention of activity in both lungs. After injection of Technetium 99m macroaggregated albumin, gamma camera imaging of the lungs in multiple projections demonstrates a single moderate size unmatched perfusion defect in the right upper lobe on anterior images. No other defects are identified. IMPRESSION: Intermediate probability for pulmonary embolus.
--- NOTE | 2017-05-29 09:52 | XRay Report ---
AP CHEST : 05/26/17 17:37:00 CLINICAL: Elevated d-dimer. COMPARISON:None FINDINGS: A borderline large heart with pacer leads in heart. Normal pulmonary vessels. The lungs are normally expanded and clear. The bones and soft tissues are unremarkable. IMPRESSION: Borderline cardiomegaly. No CHF or pneumonia.
[2017-05-29] MEDS: LASIX IV SCH (10:03)
[2017-05-29] MEDS: ZYLOPRIM PO SCH (10:03)
[2017-05-29] MEDS: COREG PO SCH ×2 (10:03→22:19)
[2017-05-29] MEDS: FEOSOL PO SCH ×2 (10:03→22:18)
[2017-05-29] MEDS: COLACE PO SCH ×2 (10:03→22:19)
[2017-05-29] MEDS: ZESTRIL PO SCH (10:05)
[2017-05-29] MEDS: APRESOLINE PO SCH (22:18)
[2017-05-29] MEDS: ARICEPT PO SCH (22:19)
[2017-05-29] MEDS: LOVENOX SUB-Q SCH (22:20)
[2017-05-30] MEDS: TYLENOL PO PRN (03:48)
[2017-05-30] MEDS: APRESOLINE PO SCH ×2 (06:35→14:49)
[2017-05-30] MEDS: NEURONTIN PO SCH ×2 (06:37→14:49)
[2017-05-30 08:29] LABS: Basophils % (Auto) 0.4 % (0.0-1.8); Hematocrit 40.6 % (35.5-45.6); Hemoglobin 13.4 gm/dl (11.8-15.2); Mean Corpuscular HGB Conc 33 % (32-34); Mean Corpuscular Hemoglobin 28 pg (28-32); Mean Corpuscular Volume 84 fl (84-94); Platelet Count 171 K/mm3 (140-440); Red Blood Count 4.81 M/mm3 (3.65-5.03); White Blood Count 8.4 K/mm3 (4.5-11.0)
[2017-05-30 08:43] LABS: Anion Gap 15 mmol/L; Blood Urea Nitrogen 21 mg/dL (9-20); Calcium 9.7 mg/dL (8.4-10.2); Carbon Dioxide 28 mmol/L (22-30); Chloride 97.4 mmol/L (98-107); Glucose 113 mg/dL (75-100); Potassium 4.2 mmol/L (3.6-5.0); Sodium 136 mmol/L (137-145)
[2017-05-30] MEDS: COREG PO SCH (09:48)
[2017-05-30] MEDS: FEOSOL PO SCH (09:48)
[2017-05-30] MEDS: ZESTRIL PO SCH (09:49)
[2017-05-30] MEDS: ZYLOPRIM PO SCH (09:49)
[2017-05-30] MEDS: COLACE PO SCH (09:50)
[2017-05-30] MEDS: LASIX IV SCH (09:51)
--- NOTE | 2017-05-30 13:08 | Discharge Summary ---
Providers - Providers Date of Admission: 05/26/17 17:37 Date of discharge: 05/30/17 Attending physician: JESSICA DONG 05/26/17 Consult to Cardiac Rehabilitation [CONS] Routine Reason For Exam: Phase I 05/26/17 22:07 Consult to Wound/ET Nurse [CONS] Urgent Reason For Exam: wound eval 05/29/17 07:37 Physical Therapy Evaluation and Treat [CONS] Routine Comment: Reason For Exam: unsteady gait,gen debility Primary care physician: [facility] Hospitalization Reason for admission: altered level of consciousness/metabolic encephalopathy Condition: Stable Pertinent studies: CT head; no acute intracranial abnormality noted chronic ischemic changes Echocardiogram; left ventricular ejection fraction 35-40% abnormal diastolic function Chest x-ray; borderline cardiomegaly no CHF VQ scan; intermediate probability for PE Hospital course: -[place] 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 was admitted through emergency room with altered level of consciousness patient was initially evaluated admitted to the hospital symptomatically managed, CT head without contrast did not show any acute abnormality Symptomatically managed, received wound care for decubitus ulcers, the patient had elevated D dimers, could not get consent has no family was available, underwent VQ scan which was intermediate probability for PE, however patient is clinically comfortable no shortness of breath no chest pain, hemodynamically stable, unlikely PE, oxygen saturations for more than 9596% Patient became more alert and awake, vital signs are stable Tolerating oral nutrition, on the day of discharge comfortable, [id number] evaluation and physical examination done by me prior to discharge was unremarkable Patient is hemodynamically and clinically stable for discharge and transfer to retirement facility Advised to get consent for more definitive test of CT angiogram of the chest to rule out PE However clinically patient is comfortable without any complaints Discharge diagnoses; Metabolic encephalopathy; improved Dementia Diabetes mellitus Elevated d-dimer is intermediate probability for PE Clinically no PE, patient has symptoms advised to obtain CT angiogram of the chest Coronary artery disease History of gout History of CVA with residual weakness Decubitus ulcers Disposition: [id number] Time spent for discharge: 33 min Core Measure Documentation - Palliative Care Palliative Care/ Comfort Measures: Not Applicable - Core Measures Any of the following diagnoses?: none Exam - Constitutional Vitals: Temp Pulse Resp BP Pulse Ox 97.8 F 61 18 146/87 98 05/30/17 10:00 05/30/17 10:00 05/30/17 10:00 05/30/17 10:00 05/30/17 10:00 General appearance: Present: no acute distress, well-nourished - EENT Eyes: Present: PERRL, EOM intact - Neck Neck: Present: supple, normal ROM - Respiratory Respiratory effort: normal Respiratory: bilateral: diminished, negative: rales, rhonchi, wheezing - Cardiovascular Rhythm: regular Heart Sounds: Present: S1 & S2 - Extremities Extremities: no ischemia, No edema - Abdominal General gastrointestinal: Present: soft, non-tender, non-distended, normal bowel sounds - Integumentary Integumentary: Present: clear, warm - Musculoskeletal Musculoskeletal: generalized weakness - Psychiatric Psychiatric: cooperative, other (confused at times) - Neurologic Neurologic: moves all extremities Plan Activity: advance as tolerated, fall precautions Diet: advance as tolerated, other (mechanical soft diet) Special Instructions: physical therapy Additional Instructions: if you have chest painor shortness of breath,contact MD or go to ER Follow up with: PRIMARY CARE,MD [Primary Care Provider] - 3-5 Days Prescriptions: hydrALAZINE [Apresoline TAB] 10 mg PO Q8HR #90 tablet Lisinopril [Zestril TAB] 2.5 mg PO QDAY #30 tablet
[2017-05-30 14:53] VITALS: BP 141/70
== END 2017-05-30 16:00 | DRG 291 ==
LOC: ED 12:40 → CC2 17:37
PROVIDERS: ADMIT Internal Medicine; ATTEND Internal Medicine
DX: I11.0 Hypertensive heart disease with heart failure (principal); L89.613 Pressure ulcer of right heel, stage 3; G93.41 Metabolic encephalopathy; I50.23 Acute on chronic systolic (congestive) heart failure; E11.9 Type 2 diabetes mellitus without complications; M10.9 Gout, unspecified; I25.10 Atherosclerotic heart disease of native coronary artery without angina pectoris; F03.90 Unspecified dementia, unspecified severity, without behavioral disturbance, psychotic disturbance, mood disturbance, and anxiety
CPT/HCPCS: 36415; 70450; 71010; 78582; 80048; 80053; 80307; 80320; 81001; 82140; 82962; 83735; 83880; 84443; 84484; 85025; 85379; 87040; 93005; 93010; 93306; 99285; A9540; A9558; G0480; G8978-GP; G8979-GP; G8980-GP; J1650; J1940

== ENCOUNTER 2020-08-06 09:08 | Outpatient (CLI) | payer MEDICARE ==
[2020-08-06] MEDS ORDERED: SODIUM HYPOCHLORITE, DAKIN'S FULL STRENGTH (0.5%) 473 ML TOPICAL SOLN TP ONE (09:55)
== END 2020-08-06 09:09 | disposition home or self-care (01) ==
LOC: WOUND 09:08
PROVIDERS: ATTEND Surgery
DX: E11.621 Type 2 diabetes mellitus with foot ulcer (principal); I70.235 Atherosclerosis of native arteries of right leg with ulceration of other part of foot; L97.516 Non-pressure chronic ulcer of other part of right foot with bone involvement without evidence of necrosis; E11.51 Type 2 diabetes mellitus with diabetic peripheral angiopathy without gangrene; I10 Essential (primary) hypertension; E78.5 Hyperlipidemia, unspecified; G47.00 Insomnia, unspecified; F03.90 Unspecified dementia, unspecified severity, without behavioral disturbance, psychotic disturbance, mood disturbance, and anxiety; F32.9 Major depressive disorder, single episode, unspecified; Z96.652 Presence of left artificial knee joint
CPT/HCPCS: 11043; 11044; G0463; 99205; 99215

== ENCOUNTER 2020-08-20 08:48 | Outpatient (CLI) | payer MEDICARE, MEDICAID ==
[2020-08-20] MEDS ORDERED: LIDOCAINE (4%) 40 MG/ML TOPICAL SOLN 50 ML BOTTLE TP ONE (08:56)
[2020-08-20] MEDS ORDERED: SODIUM HYPOCHLORITE, DAKIN'S FULL STRENGTH (0.5%) 473 ML TOPICAL SOLN TP ONE (09:59)
== END 2020-08-20 08:49 | disposition home or self-care (01) ==
LOC: WOUND 08:48
PROVIDERS: ATTEND Surgery
DX: E11.621 Type 2 diabetes mellitus with foot ulcer (principal); I70.235 Atherosclerosis of native arteries of right leg with ulceration of other part of foot; L97.514 Non-pressure chronic ulcer of other part of right foot with necrosis of bone; E11.51 Type 2 diabetes mellitus with diabetic peripheral angiopathy without gangrene; I10 Essential (primary) hypertension; E78.5 Hyperlipidemia, unspecified; G47.00 Insomnia, unspecified; F03.90 Unspecified dementia, unspecified severity, without behavioral disturbance, psychotic disturbance, mood disturbance, and anxiety; F32.9 Major depressive disorder, single episode, unspecified; Z96.652 Presence of left artificial knee joint

== ENCOUNTER 2020-08-27 08:33 | Outpatient (CLI) | payer MEDICARE ==
[2020-08-27] MEDS ORDERED: LIDOCAINE (4%) 40 MG/ML TOPICAL SOLN 50 ML BOTTLE TP ONE (08:34)
== END 2020-08-27 08:34 | disposition home or self-care (01) ==
LOC: WOUND 08:33
PROVIDERS: ATTEND Surgery
DX: E11.621 Type 2 diabetes mellitus with foot ulcer (principal); I70.235 Atherosclerosis of native arteries of right leg with ulceration of other part of foot; L97.514 Non-pressure chronic ulcer of other part of right foot with necrosis of bone; E11.51 Type 2 diabetes mellitus with diabetic peripheral angiopathy without gangrene; I10 Essential (primary) hypertension; E78.5 Hyperlipidemia, unspecified; G47.00 Insomnia, unspecified; F03.90 Unspecified dementia, unspecified severity, without behavioral disturbance, psychotic disturbance, mood disturbance, and anxiety; F32.9 Major depressive disorder, single episode, unspecified; Z96.652 Presence of left artificial knee joint
CPT/HCPCS: 99215; G0463